=== PATIENT | female | born 1955 | race Caucasian/White ===

== ENCOUNTER 2018-09-24 06:15 | Inpatient (IN) ==
--- NOTE | 2018-09-09 12:31 | PAT Medication Instructions ---
Medication Instructions Date of Service September 09, 2018 Home Medications jcmvoxlsyb-zlvjdxnxg-qptzffklo 1 tab PO QAM atenolol 50 mg PO QAM atorvastatin 20 mg PO PM [Caltrate 600-D Plus Minerals] 1 tab PO BID levothyroxine 50 mcg PO QPM meloxicam 15 mg PO QAM metformin 1,000 mg PO BID rtvvltwvibqw-egu-bbjb-FA-vit K [Multi For Her] 1 tab-cap PO QAM omeprazole 20 mg PO Q OTHER DAY ASK your surgeon for instructions meloxicam 15 mg PO QAM DO NOT take the morning of surgery cdnxzeyern-epwkjcbla-rgaphcead 1 tab PO QAM [Caltrate 600-D Plus Minerals] 1 tab PO BID metformin 1,000 mg PO BID ljuqbqmpjnsa-gcc-lxte-FA-vit K [Multi For Her] 1 tab-cap PO QAM Take morning of surgery With a small sip of water, OTHERWISE NOTHING TO EAT OR DRINK AFTER MIDNIGHT: atenolol 50 mg PO QAM omeprazole 20 mg PO Q OTHER DAY Take evening before surgery atorvastatin 20 mg PO PM [Caltrate 600-D Plus Minerals] 1 tab PO BID levothyroxine 50 mcg PO QPM metformin 1,000 mg PO BID Other Notes If you have any questions please call us at [phone] or [phone] or [phone] or [phone]
--- NOTE | 2018-09-09 13:24 | Anesthesiology Consultation ---
Date of Service September 09, 2018 Assessment & Plan (1) Encounter for pre-operative examination: CHECK BSG AM DOS PCP Clearance 09/15 = "did review recent EKG. Did show left bundle branch block. Reviewed previous EKGs and this has been present back to EKGs we can find of 2004. No further evaluation necessary. Patient does have a history of a murmur and echocardiograms in the past were unremarkable. Chest x-ray unremarkable. Recent labs stable. Patient is medically cleared for upcoming surgery scheduled for September 24, 2017. Chart Review Chart Review: Pending: Refer to Additional Notes / Consult section and Patient seen in Pre Admission Testing Teaching & Discussion Instructed NPO after midnight before surgery, except medications with 15 cc of water. Medication instructions provided according to the PAT guidelines. History Surgery Operation Date: 09/24/18 11:40 Proposed Procedures p Right Total Knee Arthroplasty - Soren Alejo MD Height/Weight Height: 5 ft 3 in Weight: 88.2 kg Allergies Allergy/AdvReac Type Severity Reaction Status Date / Time No Known Allergies Allergy Verified 09/02/18 08:45 Medications Home Medications Medication Instructions Recorded Confirmed Last Taken oxvjrgsxsj-ricjptrvo-kwxtmbvqb 1 tab PO QAM 09/02/18 09/02/18 Unknown atenolol 50 mg PO QAM 09/02/18 09/02/18 Unknown atorvastatin 20 mg PO PM 09/02/18 09/02/18 Unknown zcg-N7-kbb87ppi32-bodg-tsu-teas-oax 1 tab PO BID 09/02/18 09/02/18 Unknown [Caltrate 600-D Plus Minerals] levothyroxine 50 mcg PO QPM 09/02/18 09/02/18 Unknown meloxicam 15 mg PO QAM 09/02/18 09/02/18 Unknown metformin 1,000 mg PO BID 09/02/18 09/02/18 Unknown prdpvjbetykc-mct-drfu-FA-vit K 1 tab-cap PO QAM 09/02/18 09/02/18 Unknown [Multi For Her] omeprazole 20 mg PO Q OTHER DAY 09/02/18 09/02/18 Unknown Past Medical History Medical History Diabetes mellitus, type 2 GERD (gastroesophageal reflux disease) Hx of aneurysm BRAIN, RUPTURED 1987 - SURGERY AT [facility]. NO DEFICITS. Hyperlipidemia Hypertension Hypothyroidism Sleep apnea CPAP Exercise / Class Metabolic Activity II 4-5 Yardwork/Stairs/Walk up hill (Denies CP or SOB with 1 FOS, does daily at home) Past Family History Family History Father Family history of diabetes mellitus Past Surgical History Surgical History History of repair of left rotator cuff Hx of brain surgery REMOVAL ANUERYSM Hx of section X2 Hx of meniscectomy of right knee Hx of tubal ligation Past Anesthesia History No Hx of Anesthesia Complications and No Family Hx of Anesthesia Complications History of PONV No Hx of PONV and No Hx of Motion Sickness Social History Smoking Status: Former smoker Do You Dip or Chew Tobacco: No Smoking End Date: 1986 Hx Alcohol Use: Yes Alcohol type: beer alcohol intake frequency: a few times a week Hx Substance Use: No Review of Systems Pt denies any recent chest pain, shortness of breath, palpitations, cough, fever or URI. Physical Exam Vital Signs BP: 138/81 P: 68bpm SPO2: 97% RA T: 97.6 F R: 16 ENMT Mouth: + dental restorations (one cap lower L bicuspid) and + small oral opening; no chipped teeth and no loose teeth Thyromental Distance: < 3.5 Finger Breadths (3) Mallampati Class: III Neck + short neck; neck extension not limited Respiratory normal respiratory effort Auscultation: lungs clear to auscultation bilaterally Cardiovascular Rate/Rhythm: regular rate and regular rhythm Heart Sounds: + murmur (I/ systolic across precordium) Vessels: no carotid bruit Extremities: no edema Testing Laboratory Results 09/09/18 13:40 09/09/18 13:40 PT 10.1 Seconds (9.0-12.0) 09/09/18 13:40 INR 1.0 (0.9-1.1) 09/09/18 13:40 APTT 27.4 Seconds (21.0-31.0) 09/09/18 13:40 Hemoglobin A1c 6.5 % (4.5-5.6) H 09/09/18 13:40 Urine Color Yellow 09/09/18 13:40 Urine Appearance Clear (Clear) 09/09/18 13:40 Urine pH 5.5 (4.5-7.5) 09/09/18 13:40 Ur Specific [place] 1.011 (1.000-1.030) 09/09/18 13:40 Urine Protein Negative (Negative) 09/09/18 13:40 Urine Glucose (UA) Negative (Negative) 09/09/18 13:40 Urine Ketones Negative (Negative) 09/09/18 13:40 Urine Nitrite Negative (Negative) 09/09/18 13:40 Ur Leukocyte Esterase Negative (Negative) 09/09/18 13:40 Blood Type O Positive 09/09/18 13:40 Antibody Screen NEGATIVE 09/09/18 13:40 Electrocardiogram Date: 09/09/18 Findings: + NSR @ (64) LBBB. Chest X-Ray Date: 09/09/18 Findings: + NAD
--- NOTE | 2018-09-09 14:13 | XRay Report ---
TWO VIEW CHEST CLINICAL HISTORY: Preoperative examination. FINDINGS: PA and lateral chest radiographs are obtained. No prior studies are available for compariso n at the time of dictation. The cardiomediastinal silhouette is unremarkable. The lungs and pleura l spaces are clear. There is no pneumothorax. The bony thorax appears intact. Postoperative change is noted in the left humeral head. IMPRESSION: No active disease in the chest. Electronically signed by: Lyndon Muahmmad M.D. 09/09/2018 2:11 PM
[2018-09-09 14:59] LABS: Basophils # (auto) 0.04 K/uL (0-0.2); Basophils % (auto) 0.4 %; Eosinophils # (auto) 0.15 K/uL (0-0.5); Eosinophils % (auto) 1.6 %; Hematocrit (blood only) 38.6 % (37-47); Hemoglobin 12.7 g/dL (12.0-16.0); Immature Granulocytes # (auto) 0.03 K/uL (0.00-0.02); Immature Granulocytes % (auto) 0.3 %; Lymphocytes # (auto) 2.04 K/uL (1.2-3.4); Lymphocytes % (auto) 22.1 %; Mean Corpuscular Hgb Conc 32.9 g/dL (32-36); Mean Corpuscular Volume 88.3 fL (80-100); Mean Platelet Volume 11.4 fL (7.4-10.4); Monocytes # (auto) 0.69 K/uL (0.11-0.59); Monocytes % (auto) 7.5 %; Neutrophils # (auto) 6.28 K/uL (1.4-6.5); Neutrophils % (auto) 68.1 %; Platelet Count 327 K/uL (130-400); RDW Standard Deviation 42.1 fL (36.4-46.3); Red Blood Count 4.37 M/uL (4.2-5.4); White Blood Count 9.23 K/uL (4.8-10.8)
[2018-09-09 15:01] LABS: Appearance Urine Clear (Clear); Bilirubin Urine Negative (Negative); Blood Urine Negative (Negative); Color Urine Yellow; Glucose Urine UA Negative (Negative); Ketones Urine Negative (Negative); Leukocyte Esterase Urine Negative (Negative); Nitrite Urine Negative (Negative); Protein Urine Negative (Negative); Specific Gravity Urine 1.011 (1.000-1.030); Urobilinogen Urine Negative (Negative); pH Urine 5.5 (4.5-7.5)
[2018-09-09 15:06] LABS: Albumin Level 4.1 gm/dl (3.4-5.0); BUN Creatinine Ratio 21.8 (10-20); Calcium 10.1 mg/dl (8.5-10.1); Creatinine Clr Calc Pharmacy 58.7 ml/min; Est GFR (African American) 65.6; Est GFR (Non-African American) 56.6; Potassium 3.8 mmol/L (3.5-5.1)
[2018-09-09 15:17] LABS: Partial Thromboplastin Time 27.4 Seconds (21.0-31.0); Prothrombin Time 10.1 Seconds (9.0-12.0)
[2018-09-10 05:42] LABS: Estimated Average Glucose 140 mg/dl; Hemoglobin A1C 6.5 % (4.5-5.6)
--- NOTE | 2018-09-23 19:24 | History and Physical Report ---
DATE OF ADMISSION: 09/24/2018 CHIEF COMPLAINT: Chronic right knee pain. HISTORY OF PRESENT ILLNESS: This is a 63-year-old female patient of Dr. Alejo'radha complaining of chronic right knee pain, longstanding, now progressively getting worse. The patient has failed conservative treatment including intra-articular injections, use of anti-inflammatories, use of a brace and home exercise program. The patient has increased pain with weightbearing activities. Her pain does interfere with her activities of daily living. The patient wished to proceed with a right total knee arthroplasty. PAST MEDICAL HISTORY: Heart murmur, hypertension, hypercholesterolemia, sleep apnea with the use of CPAP, myasthenia gravis, diabetes mellitus, hypothyroidism, acid reflux. SOCIAL HISTORY: Nonsmoker, occasional drinker. PAST SURGICAL HISTORY: Left shoulder surgery, multiple C-sections, tubal ligation and a cranial aneurysm. MEDICATIONS: 1. Amlodipine 10 mg/valsartan 320 daily. 2. Hydrochlorothiazide 25 mg daily. 3. Atenolol 50 mg daily. 4. Atorvastatin 20 mg daily. 5. Metformin 1000 mg twice daily. 6. Multivitamin daily. 7. Meloxicam 15 mg daily. 8. Caltrate 600 plus D 2 times daily. 9. Omeprazole 20 mg daily. 10. Oxycodone 5 mg as needed. ALLERGIES: No known drug allergies. FAMILY HISTORY: Noncontributory. REVIEW OF SYSTEMS: Chronic right knee pain and instability. Otherwise, denies any shortness of breath, chest pain, nausea, vomiting or any other joint complaints. PHYSICAL EXAMINATION: GENERAL: Well-developed, well-nourished 63-year-old female in no acute distress. She is alert and oriented x3 and pleasant. HEENT: Normocephalic, atraumatic. Extraocular motions are intact. Pupils are equal and reactive to light. HEART: Regular rate and rhythm, no murmurs. LUNGS: Clear. ABDOMEN: Soft, nontender, bowel sounds present. EXTREMITIES: Right knee reveals a varus deformity with medial joint line tenderness. She has a limited range of motion of 0-125. She is stable. She has a mild effusion. NEUROLOGIC: Neurovascularly, she is intact in her right lower extremity. DIAGNOSES: Right knee end-stage osteoarthritis, heart murmur, hypertension, hypercholesterolemia, sleep apnea with use of CPAP, myasthenia gravis, diabetes mellitus, hypothyroidism, acid reflux. PLAN: The patient was advised of her diagnosis. Indications, risks, benefits, postop course have all been reviewed. The patient wished to proceed with a right total knee arthroplasty. Necessary consent forms, preoperative testing and clearances will be obtained.
[~2018-09-24 06:15] MED LIST: ACETAMINOPHEN 500 MG TAB PO SCH; CEFAZOLIN 2000MG 2,000 MG/15 ML SYR IV SCH; CeleBREX 200 MG CAP PO SCH; FAMOTIDINE 20 MG TAB PO SCH; GABAPENTIN 600 MG DOSE PO SCH; LR 500ML BOLUS, THEN 15ML/HR IV SCH; METOCLOPRAMIDE HCL 10 MG TABLET PO SCH; ROPIVACAINE 0.5% HCL/PF 150 MG, BUPIVACAINE 0.5% MPF 30 ML, EPINEPHrine 30MG/30ML (OR U... INSTIL SCH
[2018-09-24] MEDS ORDERED: ROPIVACAINE 0.5% 5 MG/ML 30 ML VIAL ONE (06:43)
[2018-09-24] MEDS ORDERED: MIDAZOLAM HCL 1 MG/ML 2ML VIAL ONE (06:43)
[2018-09-24] MEDS ORDERED: BUPIVACAINE 0.5 % 5 MG/1 ML PF 10ML VIAL ONE (06:43)
[2018-09-24] MEDS ORDERED: fentaNYL citrate 100 MCG/2 ML VIAL ONE (06:44)
--- NOTE | 2018-09-24 07:21 | History & Physical Bridge Note ---
Date of Service September 24, 2018 History & Physical Bridge Note I have examined the patient, reviewed the History & Physical and in the interval since the performance of the History & Physical I have noted the following changes of clinical significance: no changes noted
[2018-09-24] MEDS ORDERED: ePHEDrine sulfate 50 MG/ML AMP IV PRN (07:51)
[2018-09-24] MEDS ORDERED: ONDANSETRON INJ 2 MG/ML 2 ML VIAL IV PRN ×2 (07:51→13:48)
[2018-09-24] MEDS ORDERED: ATROPINE SULFATE 0.1 MG/ML 10ML SYR IV PRN (07:51)
[2018-09-24] MEDS ORDERED: ONDANSETRON INJ 2 MG/ML 2 ML VIAL ONE (09:07)
[2018-09-24] MEDS ORDERED: LIDOCAINE HCL 2% 2 ML VIAL/AMP(20MG/ML) INFIL ONE (09:07)
[2018-09-24] MEDS ORDERED: PROPOFOL IV EMULSION 10 MG/ML 20 ML VIAL IV ONE (09:07)
[2018-09-24] MEDS ORDERED: ORTHO JOINT ANESTHETIC ONE (09:27)
[2018-09-24] MEDS ORDERED: BACITRACIN INJ 50,000 UNIT VIAL ONE (09:28)
[2018-09-24] MEDS ORDERED: ePHEDrine sulfate 50 MG/ML SYR ONE (10:00)
--- NOTE | 2018-09-24 11:39 | Post Operative Brief Note ---
Immediate Post Op Note v1 Date of Surgery September 24, 2018 Pre & Post Diagnosis Operation Date: 09/24/18 09:10 Pre-Op Diagnosis: Right Knee Osteoarthritis Post-Op Diagnosis: Right Knee Osteoarthritis Procedure Operation Date: 09/24/18 09:10 Actual Procedures p Right Total Knee Arthroplasty(Right) - Soren Alejo MD Surgeon Soren Alejo MD Wrecking Car Driver Vinicius BARRIENTOS Estimated Blood Loss 5 Findings Consistent with Post-Op Diagnosis Specimens Bone cuts Drains Hemovac Drain (dual trocar) Anesthesia Type MAC Spinal Regional Disposition Accompanied Patient To Recovery: No Disposition: Recovery Room Overlapping Procedure I was immediately available: during the entire case.
--- NOTE | 2018-09-24 11:44 | Operative Report ---
Post Operative Report Pre & Post Diagnosis Operation Date: 09/24/18 09:10 Pre-Op Diagnosis: Right Knee Osteoarthritis Post-Op Diagnosis: Right Knee Osteoarthritis Procedure Operation Date: 09/24/18 09:10 Actual Procedures p Right Total Knee Arthroplasty(Right) - Soren Alejo MD Surgeon Soren Alejo MD Farmworker Animal Vinicius BARRIENTOS Estimated Blood Loss 5 Findings Consistent with Post-Op Diagnosis Specimens Bone cuts Drains 2 Hemovac Anesthesia Type MAC Spinal Regional Complications none Disposition Accompanied Patient To Recovery: No Disposition: Recovery Room Indications 63-year-old female with severe bilateral knee osteoarthritis jofa-am-lwgg medial compartment bilaterally presents for staged total knee replacement. Patient has failed conservative management. Description of Procedure Patient taken to the operating room placed supine on the operating table and anesthetized under spinal MAC regional anesthesia. Exam under anesthesia demonstrated flexion contracture of 5 to 10 degrees with good flexion to 130 degrees with no instability. A pneumatic tourniquet was placed about the thigh of the right lower extremity. The right lower extremity was prepped and draped in usual fashion. Leg was elevated exsanguinated with an Esmarch bandage and the pneumatic was raised to 325 mm mercury. An anterior incision was made across the right knee. The skin was incised longitudinally subcutaneous flaps were elevated and an incision was made through the medial retinaculum extending up into the mid third of the quadriceps tendon and extended down to the medial tibial tubercle. Intra-articular findings demonstrated primarily compartment osteoarthritis with large osteophytes along the medial compartment medial femoral condyle sgez-qe-zuhq varus knee. The knee was exposed by excising the infrapatellar fat pad, excising the meniscal remnants and cruciate ligaments or remnants of the ligaments. Any inflamed synovial tissue was resected. The fat pad over the anterior femur was resected for placement of the component in that area. The lateral synovial bands were release. Appropriate releases were performed to balance ligaments. The femur was exposed. The drill hole was made into the femoral canal guide lisa was placed and the femoral cutting block was pinned in position. The distal femoral cutting block was applied and +2 additional resection performed due to flexion contracture. The distal femoral cut was made with the oscillating saw. The size 7 4-in-1 cutting block was placed. The anterior and posterior chamfer cuts were made. The knee was extended and a subperiosteal peel lateral release was performed around the patella. The patella width was measured and width was reproduced using freehand cut technique. The 29 x 8 millimeter symmetrical patella was used. 3 drill holes are made for the pegs. The tibia was exposed. A custom tibial cutting block was positioned and drill holes were made for the cutting guide. Cutting guide was placed and the proximal cut was made with the oscillating saw. All osteophytes were resected. The lamina mica spreader was used to assess ligamentous balance and the ligaments were balanced in extension and flexion. The tibia was reexposed and measured for a size D tibial component. This was externally rotated in line with the tibial tubercle and the fixation pins were drilled. The proximal tibia was fashioned with the drill and punch. The size 7 femoral trial was inserted. The trial MC inserts were used. The 12 mm insert gave balanced ligaments through full range of motion. The patella tracked with some slight liftoff so a lateral release was performed and the patella tracked centrally. the trials were removed. The orthomix anesthetic cocktail was injected per protocol. The knee was then copiously irrigated with pulsatile lavage antibiotic solution with bacitracin. The final components were cemented with Simplex cement. The final components were Billy persona size 7 narrow right femur, D tibia, 12 mm MC poly-insert, 29 x 8 mm patella symmetrical. While the cement cured with the knee in full extension the Betadine soak was used per protocol. After the cement cured, the knee joint was copiously irrigated with antibiotic solution with bacitracin. 2 drains were brought out laterally and connected to a Hemovac. The quadriceps tendon and medial retinaculum were closed with interrupted [id number]-[id number] #1 Vicryl sutures. The knee was taken through a full range of motion and repair was secure. The subcutaneous tissues were closed with 2-0 Vicryl sutures and skin was closed with fabienne. Sterile dressings were applied and the patient tolerated the procedure well. Vinicius BARRIENTOS my physician office clerk assistant, assisted in soft tissue retraction instrument management leg positioning the closure and will participate in the postoperative care of the patient. I attest to the content of the Intraoperative Record and any orders documented therein. Any exceptions are noted below.
--- NOTE | 2018-09-24 12:31 | XRay Report ---
RIGHT KNEE 2 VIEWS History: Right total knee arthroplasty. Degenerative arthritis. Postop. FINDINGS: The patient is status post a right total knee arthroplasty. The hardware is intact. No frac ture or dislocation. Skin fabienne and surgical drains are in place. IMPRESSION: Right total knee arthroplasty. No evidence for hardware complication. Electronically signed by: Willis Mcconnell M.D. 09/24/2018 12:30 PM
--- NOTE | 2018-09-24 13:07 | Anesthesiology Progress Note ---
Date of Service September 24, 2018 Anesthesia Post Procedure Vital Signs Vital Signs: Temp Pulse Pulse Resp BP Pulse Ox 09/24/18 12:40 36.6 C 61 15 124/61 99 09/24/18 12:30 36.6 C 62 19 148/76 H 98 09/24/18 12:20 63 14 130/65 99 09/24/18 12:10 62 14 146/72 H 99 09/24/18 12:00 65 14 136/74 95 09/24/18 11:50 65 16 136/66 99 09/24/18 11:46 36.4 C L 63 16 125/60 99 09/24/18 06:49 36.4 C L 64 20 158/92 H 98 Transfer of Care Handoff Completed per policy Notes Mental Status: alert / awake / arousable Patient Amnestic to Procedure: Yes Nausea / Vomiting: adequately controlled Pain: adequately controlled Airway Patency, RR, SpO2: stable & adequate BP & HR: stable & adequate Hydration State: stable & adequate Neuraxial Anesthesia: was administered and sensory block is resolving Anesthetic Complications: no major complications apparent and Pt Satisfied with anesthetic care
[2018-09-24] MEDS ORDERED: BISACODYL 10 MG SUPP PR PRN (13:48)
[2018-09-24] MEDS ORDERED: MAGNESIUM HYDROXIDE SUSP 30 ML UDC PO PRN (13:48)
[2018-09-24] MEDS ORDERED: NALOXONE HCL 0.4 MG/1 ML VIAL/CARP IV PRN (13:48)
[2018-09-24] MEDS ORDERED: PHARMACY GLYCEMIC MGMT CONSULT PRN (14:18)
[2018-09-24] MEDS ORDERED: GLUCAGON FOR INJ 1 MG VIAL IM PRN (14:30)
[2018-09-24] MEDS ORDERED: DEXTROSE 50% 50 ML SYRINGE IV PRN (14:30)
[2018-09-24] MEDS ORDERED: GLUCOSE 10 TABS/TUBE PO PRN (14:30)
[2018-09-24] MEDS ORDERED: GLUCOSE 40% GEL 15 GM TUBE PO PRN (14:30)
[2018-09-24] MEDS ORDERED: CARBOHYDRATES FOR HYPOGLYCEMIA PO PRN (14:30)
[2018-09-24] MEDS: SODIUM CHLORIDE 0.9% 1000ML 1,000 ML IV SCH (14:32)
[2018-09-24] MEDS: ACETAMINOPHEN 500 MG TAB PO SCH ×2 (14:32→21:05)
--- NOTE | 2018-09-24 14:37 | Pharmacy Report ---
Pharmacy Glycemic Short Note 2 - Date of Service September 24, 2018 - Glycemic Short BSG Results (Last 24 hours): 09/24/18 09/24/18 09/24/18 07:28 11:50 14:20 POC Glucose 126 H 119 H 116 H OUTPATIENT ANTIDIABETIC REGIMEN: * Metformin 1gm PO BID * HbA1c: 6.5% (09/09/18) ASSESSMENT: * Ms Hardy is a 63yo diabetic female POD 0 s/p R TKA with Dr Alejo today. * Patient did not receive any dexamethasone. She is ordered a diabetic diet. * Novolog added post-op while PO agents on hold. * Will consider resuming home regimen tomorrow. PLAN FOR INPATIENT GLYCEMIC CONTROL: * Hold outpatient oral diabetes medications * Likely resume tomorrow if patient is tolerating diet and renal function is appropriate. * Basal insulin * None * Bolus insulin * NovoLog per scale ACHS or Q6hrs while NPO * Goal Range: Low 110 mg/dL - High 150 mg/dL * Correction Factor: 25 mg/dL/unit * Nutritional / Prandial insulin per carb ratio of 1 unit per 9 grams CHO consumed PLAN FOR DISCHARGE: * Patient A1c (6.5%) indicates excellent glycemic control as an outpatient. * Expect that patient may resume home regimen on discharge, as long as she does not report having episodes of hypoglycemia.
[2018-09-24] MEDS: CEFAZOLIN 2000MG 2,000 MG/15 ML SYR IV SCH (18:30)
[2018-09-24] MEDS: INSULIN ASPART 100 UNITS/ML 3 ML PEN SC SCH ×2 (18:33→21:06)
[2018-09-24] MEDS ORDERED: LEVOTHYROXINE SODIUM 50 MCG TABLET PO SCH (21:00)
[2018-09-24] MEDS ORDERED: Nursing to Pharmacy Communication ONE (21:01)
[2018-09-24] MEDS: CALCIUM 600MG + VIT D 400 IU TAB PO SCH (21:03)
[2018-09-24] MEDS: DOCUSATE SODIUM 100 MG CAP PO SCH (21:04)
[2018-09-24] MEDS: CeleBREX 200 MG CAP PO SCH (21:04)
[2018-09-24] MEDS: ASPIRIN 81 MG ECTAB PO SCH (21:05)
[2018-09-24] MEDS: ATORVASTATIN 20 MG TAB PO SCH (21:05)
[2018-09-24] MEDS: SENNA 8.6 MG TAB PO SCH (21:06)
[2018-09-25] MEDS: OXYCODONE HCL IR 5 MG TAB (IMMEDIATE RELEASE) PO PRN ×5 (00:04→23:46)
[2018-09-25] MEDS: SODIUM CHLORIDE 0.9% 1000ML 1,000 ML IV SCH (00:05)
[2018-09-25] MEDS: CEFAZOLIN 2000MG 2,000 MG/15 ML SYR IV SCH (03:00)
[2018-09-25] MEDS: ACETAMINOPHEN 500 MG TAB PO SCH ×3 (05:29→21:21)
[2018-09-25] MEDS: LEVOTHYROXINE SODIUM 50 MCG TABLET PO SCH (05:29)
[2018-09-25 08:05] LABS: Hematocrit (blood only) 27.5 % (37-47); Hemoglobin 9.2 g/dL (12.0-16.0); Mean Corpuscular Hgb Conc 33.5 g/dL (32-36); Mean Corpuscular Volume 88.1 fL (80-100); Mean Platelet Volume 10.1 fL (7.4-10.4); Platelet Count 218 K/uL (130-400); RDW Coefficient of Variation 13.4 % (11.5-14.5); RDW Standard Deviation 42.9 fL (36.4-46.3); Red Blood Count 3.12 M/uL (4.2-5.4); White Blood Count 7.24 K/uL (4.8-10.8)
[2018-09-25] MEDS: HYDROmorphone INJ 0.5 MG/0.5 ML SYR IV PRN ×3 (08:06→21:13)
--- NOTE | 2018-09-25 08:10 | Orthopedic Progress Note ---
Date of Service September 25, 2018 Assessment & Plan (1) Total knee replacement status: Doing well status post right knee replacement. PT pain management outpatient physical therapy after discharge Subjective Little more pain today but doing well on present pain meds Physical Exam Physical Exam: Independent straight leg raise dressings dry and intact CSM intact Results & Data Vital Signs (Past 12 Hours) Vital Signs Temp Pulse Resp BP Pulse Ox 09/25/18 07:32 36.6 C 60 16 134/61 93 09/25/18 03:07 36.8 C 59 L 18 125/62 94 09/24/18 22:58 36.4 C L 58 L 17 123/77 94
[2018-09-25 08:44] LABS: BUN Creatinine Ratio 18.4 (10-20); Calcium 8.5 mg/dl (8.5-10.1); Creatinine Clr Calc Pharmacy 60.6 ml/min; Est GFR (African American) 68.8; Est GFR (Non-African American) 59.3; Potassium 3.9 mmol/L (3.5-5.1)
[2018-09-25] MEDS: METFORMIN HCL 500 MG TAB PO SCH ×2 (08:50→18:09)
[2018-09-25] MEDS: VALSARTAN 80 MG TAB PO SCH (08:51)
[2018-09-25] MEDS: hydroCHLOROthiazide 25 MG TAB PO SCH (08:51)
[2018-09-25] MEDS: MULTIVITAMIN TAB PO SCH (08:51)
[2018-09-25] MEDS: AMLODIPINE BESYLATE 5 MG TAB PO SCH (08:51)
[2018-09-25] MEDS: CALCIUM 600MG + VIT D 400 IU TAB PO SCH ×2 (08:51→21:18)
[2018-09-25] MEDS: ATENOLOL 50 MG TABLET PO SCH (08:51)
[2018-09-25] MEDS: DOCUSATE SODIUM 100 MG CAP PO SCH ×2 (08:51→21:19)
[2018-09-25] MEDS: ASPIRIN 81 MG ECTAB PO SCH ×2 (08:51→21:19)
[2018-09-25] MEDS: CeleBREX 200 MG CAP PO SCH ×2 (08:52→21:18)
[2018-09-25] MEDS: INSULIN ASPART 100 UNITS/ML 3 ML PEN SC SCH ×4 (08:52→21:29)
[2018-09-25] MEDS ORDERED: NON-FORMULARY MEDICATION (Multivitamin-Min-Iron-Fa-Vit K [Multi For Her] 1 TABCAP) PO SCH (09:00)
[2018-09-25] MEDS: SENNA 8.6 MG TAB PO SCH (21:20)
[2018-09-25] MEDS: ATORVASTATIN 20 MG TAB PO SCH (21:20)
--- NOTE | 2018-09-25 23:08 | Hospitalist Consultation ---
Date of Consultation September 25, 2018 Assessment & Plan (1) Total knee replacement status: No acute medical problems at this time. Continue her home medication regimen. DVT proph: as per primary team (2) Hypertension: B/P at goal. Recommend resuming all meds in AM. History of Present Illness Reason for Consultation: Medical management Requesting Physician: Riley Chow Attending Physician: Soren Alejo MD History of Present Illness 63 yo female is hospitalized for Right Total Knee Arthroplasty due to osteoarthritis. Patient reports doing well and has no new complaints at the moment. He only issue is mild pain on the operated right total knee arthroplasty. Patient denies any fever, chill,s nausea, vomiting, SOB, chest pain. Allergies Allergy/AdvReac Type Severity Reaction Status Date / Time No Known Allergies Allergy Verified 09/24/18 06:55 Home Medications Home Medications Medication Instructions Recorded Confirmed Type Caltrate 600-D Plus Minerals 1 tab PO BID 09/02/18 09/24/18 History Multi For Her 1 tab-cap PO QAM 09/02/18 09/24/18 History mhdnnytlzb-xhsftctlf-wpcktfazq 1 tab PO QAM 09/02/18 09/24/18 History atenolol 50 mg PO QAM 09/02/18 09/24/18 History atorvastatin 20 mg PO PM 09/02/18 09/24/18 History levothyroxine 50 mcg PO QPM 09/02/18 09/24/18 History metformin 1,000 mg PO BID 09/02/18 09/24/18 History omeprazole 20 mg PO Q OTHER DAY 09/02/18 09/24/18 History acetaminophen [Tylenol Extra 1,000 mg PO Q8 30 Days #180 tab 09/26/18 Rx Strength] aspirin [Ecotrin Low Strength] 81 mg PO BID 30 Days #60 tab 09/26/18 Rx celecoxib [Celebrex] 200 mg PO BID 30 Days #60 cap 09/26/18 Rx oxycodone 5 mg PO Q4H PRN #30 tab 09/26/18 Rx Patient History Medical History Diabetes mellitus, type 2 GERD (gastroesophageal reflux disease) Hx of aneurysm BRAIN, RUPTURED 1986 - SURGERY AT [facility]. NO DEFICITS. Hyperlipidemia Hypertension Hypothyroidism Sleep apnea CPAP Surgical History History of repair of left rotator cuff Hx of brain surgery REMOVAL ANUERYSM Hx of section X2 Hx of meniscectomy of right knee Hx of tubal ligation Family History Father Family history of diabetes mellitus Social History Preferred Language: [place]ar[place] Communication Ability: Effective Beliefs That Will Affect Care: None marital status: Current Living Situation: Spouse Feels Safe at Home: Yes Safety Concerns: Feels Safe At This Time Smoking Status: Former smoker Do You Dip or Chew Tobacco: No ; Smoking End Date: 1986 ; Second Hand Exposure: Yes (SOCIALLY) ; Hx Alcohol Use: Yes Alcohol type: beer Hx Substance Use: No Review of Systems Review of Systems: All systems reviewed & are unremarkable except as noted in HPI & below Constitutional: no sweats and no malaise Eyes: no diplopia Respiratory: no change in sputum and no hemoptysis Cardiovascular: no chest pain with activity Genitourinary: no urinary frequency Integumentary: no non-healing lesions Neurologic: no falls Psychiatric: no hopelessness Physical Exam Constitutional: well developed and well nourished Eyes: PERRL, conjunctivae normal, anicteric sclerae ENMT: external ear and nose normal, oropharynx normal Neck: trachea midline, no thyromegaly Respiratory: normal respiratory effort, lungs clear to auscultation Cardiovascular: RRR, no murmur, no edema Gastrointestinal (Abdomen): normal bowel sounds, soft, nontender, no hepatosplenomegaly Musculoskeletal: no cyanosis or clubbing, extremities motor strength 5/5 Neurologic: PERRL, EOMI, accommodation nl, no face palsy, no dysarthria Psychiatric: A+Ox3, euthymic affect Results & Data Vital Signs (Past 12 Hours) Vital Signs Temp Pulse Resp BP Pulse Ox Pulse Ox 09/25/18 22:38 36.6 C 64 16 101/62 93 09/25/18 15:52 37.0 C 65 18 158/77 H 97 09/25/18 13:20 97 09/25/18 12:29 36.5 C 58 L 16 118/78 95 PG Care Time/CCT Total # of Minutes Spent Total Time Spent with Patient: Total time spent is greater than 50% in coordination of care (as documented) at patient's floor/unit and/or counseling patient:
[2018-09-26] MEDS: ACETAMINOPHEN 500 MG TAB PO SCH (05:21)
[2018-09-26] MEDS: LEVOTHYROXINE SODIUM 50 MCG TABLET PO SCH (05:21)
--- NOTE | 2018-09-26 06:59 | Orthopedic Progress Note ---
Date of Service September 26, 2018 Assessment & Plan (1) Total knee replacement status: POD #2 Right TKA PT/ OT DVT proph- ASA D/C planning Home w OPPT today As per medicine Subjective POD #2 Doing well, Denies SOB, CP, N/V. Pain controlled well. Physical Exam Physical Exam: Right knee silverlon dressing in tact, no drainage, toes/ ankle mobile, A&Ox3. Results & Data Vital Signs (Past 12 Hours) Vital Signs Temp Pulse Resp BP Pulse Ox 09/25/18 22:38 36.6 C 64 16 101/62 93
[2018-09-26 07:26] LABS: Hemoglobin 9.1 g/dL (12.0-16.0); Mean Corpuscular Hgb Conc 32.5 g/dL (32-36); Mean Corpuscular Volume 89.2 fL (80-100); Mean Platelet Volume 10.3 fL (7.4-10.4); Platelet Count 254 K/uL (130-400); RDW Coefficient of Variation 13.7 % (11.5-14.5); RDW Standard Deviation 44.3 fL (36.4-46.3); Red Blood Count 3.14 M/uL (4.2-5.4); White Blood Count 9.16 K/uL (4.8-10.8)
[2018-09-26 07:55] LABS: BUN Creatinine Ratio 19.3 (10-20); Calcium 8.4 mg/dl (8.5-10.1); Creatinine Clr Calc Pharmacy 52.4 ml/min; Est GFR (African American) 57.6; Est GFR (Non-African American) 49.7; Potassium 3.9 mmol/L (3.5-5.1)
[2018-09-26] MEDS: METFORMIN HCL 500 MG TAB PO SCH (08:33)
[2018-09-26] MEDS: CALCIUM 600MG + VIT D 400 IU TAB PO SCH (08:33)
[2018-09-26] MEDS: CeleBREX 200 MG CAP PO SCH (08:34)
[2018-09-26] MEDS: DOCUSATE SODIUM 100 MG CAP PO SCH (08:34)
[2018-09-26] MEDS: VALSARTAN 80 MG TAB PO SCH (08:35)
[2018-09-26] MEDS: hydroCHLOROthiazide 25 MG TAB PO SCH (08:35)
[2018-09-26] MEDS: ASPIRIN 81 MG ECTAB PO SCH (08:35)
[2018-09-26] MEDS: AMLODIPINE BESYLATE 5 MG TAB PO SCH (08:36)
[2018-09-26] MEDS: ATENOLOL 50 MG TABLET PO SCH (08:36)
[2018-09-26] MEDS: MULTIVITAMIN TAB PO SCH (08:36)
[2018-09-26] MEDS: INSULIN ASPART 100 UNITS/ML 3 ML PEN SC SCH ×2 (08:40→12:41)
[2018-09-26] MEDS ORDERED: PANTOprazole 40 MG TAB PO SCH (09:00)
--- NOTE | 2018-09-26 11:16 | Pharmacy Report ---
Glycemic Control Progress Note - Date of Service September 26, 2018 - Scope Glycemic Pharmacist consulted for glycemic control to write orders per [facility] inpatient glycemic control protocol. - Objective Accuchecks BSG(last 24 hours):: 09/25/18 09/25/18 09/25/18 12:06 17:18 20:41 Glucose POC Glucose 166 H 103 H 136 H 09/26/18 09/26/18 07:06 08:29 Glucose 143 H POC Glucose 136 H HbA1c:: Hemoglobin A1c 6.5 % (4.5-5.6) H 09/09/18 13:40 - Recent Pertinent Medications The patient is currently receiving: * Basal insulin: NONE * Correctional Insulin: Novolog Correction per scale ACHS Goal Range: Low 110 mg/dL - High 150 mg/dL Correction Factor: 25 mg/dL/unit * Prandial insulin: Per carb ratio of 1 unit per 9 grams CHO consumed * Oral Agents: metformin 1 gm po BID - Outpatient Anti-Diabetic Meds metformin 1 gm PO BID - Assessment & Plan ASSESSMENT: * See progress note from 09/24/18 for more background info, in short: * Pt receiving SQ basal bolus insulin regimen for hyperglycemia secondary to baseline DM (outpatient regimen on hold) and POD 2. * Patient is currently receiving an average of 15 units of insulin per day * 0 units of basal insulin * 15 units of prandial/correctional insulin * BSGs ranging 103 - 166 mg/dl over the past 24hrs * Changes needed to insulin regimen: * AM Fasting BSG = 136 mg/dl. This is in goal range for patient based on inpatient targets and co-morbidities. Continue to hold basal insulin. * Post-prandial BSGs are in range therefore no changes needed to CF/CR. * Total daily dose = <20 units. * Additional notes / comments: continue home medication of metformin 1 gm PO BID PLAN FOR INPATIENT GLYCEMIC CONTROL: * Continuing correction factor of 25 mg/dl/unit * Continuing carb ratio of 1 unit per 9 grams CHO consumed * Continuing goal range of Low 110 mg/dL - High 140 mg/dL RECOMMENDATIONS FOR DISCHARGE: * Patient's HbA1C well controlled. Continue currently regimen. * Please note that the plan above was derived based on current level of insulin resistance and hospital stress. These recommendations are appropriate for inpatient admission only. Plan of care upon discharge will need to be reassessed to avoid potential outpatient hypo/hyperglycemia. Thank you.
[2018-09-26] MEDS: OXYCODONE HCL IR 5 MG TAB (IMMEDIATE RELEASE) PO PRN (11:29)
--- NOTE | 2018-10-08 04:06 | Discharge Summary ---
HISTORY OF PRESENT ILLNESS: This is a 63-year-old female patient of Dr. Alejo's, complaining of chronic right knee pain, longstanding, now progressively getting worse. The patient failed conservative treatment and elected to proceed with a right total knee arthroplasty. PAST MEDICAL HISTORY: Heart murmur, hypertension, hypercholesterolemia, sleep apnea with the use of CPAP, myasthenia gravis, diabetes mellitus, hypothyroidism and acid reflux. POSTOPERATIVE COURSE: The patient underwent a right total knee arthroplasty on 09/24/2018. She was followed closely with medical consultation, DVT prophylaxis in the form of aspirin, physical therapy and pain control. The patient did well postoperatively and was discharged home on postoperative day #2. PHYSICAL EXAMINATION: On discharge, right knee Silverlon dressing was clean, dry and intact. There was no redness or drainage. She had no calf tenderness. Negative Homans sign. Ankle and toes were mobile. Neurologically and neurovascularly, she is intact in her right lower extremity. DIAGNOSES: Status post right total knee arthroplasty, history of a heart murmur, hypertension, hypercholesterolemia, sleep apnea with use of CPAP, myasthenia gravis, diabetes mellitus, hypothyroidism and acid reflux. PLAN: The patient was discharged home on postoperative day #2 with outpatient physical therapy. She will continue her preadmission medications with the addition of aspirin twice daily for DVT prophylaxis and the addition of pain medications. The patient will follow up with Dr. Alejo as scheduled as an outpatient.
== END 2018-09-26 12:47 | disposition home or self-care (01) | DRG 470 ==
LOC: ASU 06:15 → 3W 11:45
DX: E78.00 Pure hypercholesterolemia, unspecified; I10 Essential (primary) hypertension; M17.11 Unilateral primary osteoarthritis, right knee; Z79.899 Other long term (current) drug therapy; E11.9 Type 2 diabetes mellitus without complications; Z79.84 Long term (current) use of oral hypoglycemic drugs; G47.30 Sleep apnea, unspecified; E03.9 Hypothyroidism, unspecified; K21.9 Gastro-esophageal reflux disease without esophagitis

== ENCOUNTER 2019-08-19 08:49 | Inpatient (IN) ==
[2019-08-13 12:44] LABS: Basophils # (auto) 0.03 K/uL (0-0.2); Basophils % (auto) 0.3 %; Eosinophils # (auto) 0.15 K/uL (0-0.5); Eosinophils % (auto) 1.7 %; Hematocrit (blood only) 38.3 % (37-47); Hemoglobin 12.5 g/dL (12.0-16.0); Immature Granulocytes # (auto) 0.04 K/uL (0.00-0.02); Immature Granulocytes % (auto) 0.4 %; Lymphocytes # (auto) 2.19 K/uL (1.2-3.4); Lymphocytes % (auto) 24.3 %; Mean Corpuscular Hemoglobin 28.4 pg (25-34); Mean Corpuscular Hgb Conc 32.6 g/dL (32-36); Mean Platelet Volume 10.8 fL (7.4-10.4); Monocytes # (auto) 0.86 K/uL (0.11-0.59); Monocytes % (auto) 9.6 %; Neutrophils # (auto) 5.73 K/uL (1.4-6.5); Neutrophils % (auto) 63.7 %; Platelet Count 330 K/uL (130-400); RDW Coefficient of Variation 14.1 % (11.5-14.5); RDW Standard Deviation 44.2 fL (36.4-46.3)
[2019-08-13 12:55] LABS: Prothrombin Time 10.2 Seconds (9.0-12.0)
[2019-08-13 13:07] LABS: Estimated Average Glucose 151 mg/dl; Hemoglobin A1C 6.9 % (4.5-5.6)
[2019-08-13 13:16] LABS: Albumin Level 4.4 gm/dl (3.4-5.0); BUN Creatinine Ratio 15.6 (10-20); Blood Urea Nitrogen 17 mg/dl (7-18); Calcium 9.9 mg/dl (8.5-10.1); Carbon Dioxide 26 mmol/L (21-32); Chloride 102 mmol/L (98-107); Est GFR (African American) 63.7; Glucose 91 mg/dl (70-99); Potassium 3.6 mmol/L (3.5-5.1); Sodium 137 mmol/L (136-145)
[2019-08-13 13:45] LABS: Appearance Urine Clear (Clear); Bilirubin Urine Negative (Negative); Blood Urine Negative (Negative); Color Urine Yellow; Glucose Urine UA Negative (Negative); Ketones Urine Negative (Negative); Leukocyte Esterase Urine Negative (Negative); Nitrite Urine Negative (Negative); Protein Urine Negative (Negative); Specific Gravity Urine 1.013 (1.000-1.030); Urobilinogen Urine Negative (Negative); pH Urine 5.5 (4.5-7.5)
--- NOTE | 2019-08-17 09:16 | Anesthesiology Consultation ---
Date of Service August 17, 2019 Assessment & Plan (1) Encounter for pre-operative examination: Chart Review Chart Review: Acceptable Risk for Surgery (pending evaluation by anesthesia) and Patient NOT seen in Pre Admission Testing - Check BSG AM DOS -Did discuss [address] Carden[address]. Pt follows routinely with PCP. Will need evaluation AM of surgery to ensure no functional limitations. Will leave to anesthesia discretion on type of anesthesia needed and final decision to proceed with surgery. Bolus not ordered until evaluated by anesthesia- patient will need bolus if SAB done. Per nursing assessment 08/14/19, pt resides in [facility]. Has traveled to [facility] and [facility]. Goes only to grocery store-wears mask and social distances. Had Covid testing 08/12 at surgeon's office. Covid test 08/13/19= negative Per anesthesia evaluation prior to right TKA on August= PCP stated in 09/15/18 note "did review recent EKG. Did show left bundle branch block. Reviewed previous EKGs and this has been present back to EKGs we can find of 2004. No further evaluation necessary. Patient does have a history of a murmur and echocardiograms in the past were unremarkable." Pt was cleared from PCP standpoint for August surgery. Right TKA 09/24/18= Done under SAB- no issues noted per anesthesia record. History Surgery Operation Date: 08/19/19 11:20 Proposed Procedures p Left Total Knee Arthroplasty - Soren Alejo MD Height/Weight Height: 5 ft 3 in Weight: 90.718 kg Allergies Allergy/AdvReac Type Severity Reaction Status Date / Time No Known Allergies Allergy Verified 08/14/19 15:23 Medications Home Medications Medication Instructions Recorded Confirmed Last Taken Caltrate 600-D Plus Minerals 1 tab PO BID 09/02/18 08/14/19 09/22/18 07:00 Multi For Her 1 tab-cap PO QAM 09/02/18 08/14/19 09/22/18 07:00 lyrpqrmjzs-rwqfseflk-pzdduqjgc 1 tab PO QAM 09/02/18 08/14/19 09/23/18 07:00 atenolol 50 mg PO PM 09/02/18 08/14/19 09/24/18 04:00 atorvastatin 20 mg PO PM 09/02/18 08/14/19 09/23/18 18:00 levothyroxine 50 mcg PO QAM 09/02/18 08/14/19 09/23/18 07:00 metformin 1,000 mg PO BID 09/02/18 08/14/19 09/23/18 18:00 omeprazole 20 mg PO QAM 09/02/18 08/14/19 09/24/18 04:00 acetaminophen [Tylenol 8 Hour] 650 mg PO Q8H PRN 08/14/19 08/14/19 Unknown Past Medical History Medical History Diabetes mellitus, type 2 GERD (gastroesophageal reflux disease) Hx of aneurysm BRAIN, RUPTURED 1986 - SURGERY AT [facility]. NO DEFICITS. Hyperlipidemia Hypertension Hypothyroidism Osteoarthritis Sleep apnea CPAP Past Family History Family History Father Family history of diabetes mellitus Brother Colon cancer Brother Stroke Past Surgical History Surgical History History of breast biopsy RIGHT History of colonoscopy History of repair of left rotator cuff History of tooth extraction History of total knee replacement RIGHT Hx of brain surgery REMOVAL ANUERYSM> 1986 Hx of section X2 Hx of meniscectomy of right knee Hx of tubal ligation Social History Smoking Status: Former smoker Do You Dip or Chew Tobacco: No Smoking End Date: 1986 Hx Alcohol Use: Yes Alcohol type: beer alcohol intake frequency: a few times a week Hx Substance Use: No substance use type: does not use Testing Laboratory Results 08/13/19 11:59 08/13/19 11:59 PT 10.2 Seconds (9.0-12.0) 08/13/19 11:59 INR 1.0 (0.9-1.1) 08/13/19 11:59 APTT 28.0 Seconds (21.0-31.0) 08/13/19 11:59 Hemoglobin A1c 6.9 % (4.5-5.6) H 08/13/19 11:59 Urine Color Yellow 08/13/19 11:59 Urine Appearance Clear (Clear) 08/13/19 11:59 Urine pH 5.5 (4.5-7.5) 08/13/19 11:59 Ur Specific [place] 1.013 (1.000-1.030) 08/13/19 11:59 Urine Protein Negative (Negative) 08/13/19 11:59 Urine Glucose (UA) Negative (Negative) 08/13/19 11:59 Urine Ketones Negative (Negative) 08/13/19 11:59 Urine Nitrite Negative (Negative) 08/13/19 11:59 Ur Leukocyte Esterase Negative (Negative) 08/13/19 11:59 Blood Type O Positive 08/13/19 11:59 Antibody Screen NEGATIVE 08/13/19 11:59 Electrocardiogram Date: 09/09/18 Findings: + NSR @ (64) LBBB Chest X-Ray Date: 09/09/18 Findings: + NAD Echocardiogram Date: 08/19/07 EF: 61% RWMA: + none Mild AV sclerosis adequate leaflet mobility, and normal mitral and tricuspid v alve. Minimal without significant AI. JACQUELINE 1.2cm2; mean PG 4mmHg; AV velocity 1.6m/s Mild MR. Mild TR
--- NOTE | 2019-08-18 16:09 | History and Physical Report ---
DATE OF ADMISSION: 08/19/2019 CHIEF COMPLAINT: Chronic left knee pain and instability. HISTORY OF PRESENT ILLNESS: A 64-year-old female patient of Dr. Johnson complaining of chronic left knee pain and instability, longstanding, now progressively getting worse. The patient has failed conservative treatment including intraarticular injections, anti-inflammatories and the use of a brace. The patient has increased pain with weightbearing activities and her pain does interfere with her activities of daily living. She has been diagnosed with end-stage osteoarthritis per clinical and radiographic exams and has elected to proceed with a left total knee arthroplasty. PAST MEDICAL HISTORY: Heart murmur, hypertension, hypercholesterolemia, diabetes mellitus, hypothyroidism, acid reflux. SOCIAL HISTORY: Nonsmoker, occasional drinker. PAST SURGICAL HISTORY: x2, tubal ligation, left shoulder surgery on the rotator cuff, right total knee arthroplasty and left foot surgery removal of cyst. FAMILY HISTORY: Noncontributory. REVIEW OF SYSTEMS: Chronic left knee pain and instability. Otherwise, denies any shortness of breath, chest pain, nausea, vomiting or any other joint complaints. MEDICATIONS: 1. Atenolol 50 mg daily. 2. Atorvastatin 20 mg daily. 3. Metformin 1000 mg twice daily with meals. 4. Multivitamin daily. 5. Caltrate 600 plus D daily. 6. Omeprazole 20 mg daily. 7. Levothyroxine 50 mcg daily. 8. Valsartan 320/hydrochlorothiazide 25 daily. 9. Amlodipine 10 mg daily. 10. Celebrex 200 mg daily. ALLERGIES: No known drug allergies. PHYSICAL EXAMINATION: GENERAL: Well-developed, well-nourished 64-year-old female in no acute distress. She is alert and oriented x3 and pleasant. HEENT: Normocephalic, atraumatic. Extraocular motions are intact. Pupils are equal and reactive to light. HEART: Regular rate and rhythm, no murmurs. LUNGS: Clear. ABDOMEN: Soft, nontender, bowel sounds present. EXTREMITIES: Left knee has a varus deformity with medial joint line tenderness. She has a mild effusion, positive Adam's. Limited range of motion of 0 to 120 with 5/5 strength. Neurologically and neurovascularly intact in her left lower extremity. DIAGNOSES: Left knee end-stage osteoarthritis, heart murmur, hypertension, hypercholesterolemia, diabetes mellitus, hypothyroidism, acid reflux. PLAN: The patient was advised of her diagnosis. Indications, risks, benefits, postop course have all been reviewed. The patient agrees to proceed with a left total knee arthroplasty. Necessary consent forms, preoperative testing and clearances will be obtained. LEANDER
[~2019-08-19 08:49] MED LIST changes: +BUPIVACAINE 0.5 % 5 MG/1 ML MPF 30ML VIAL ONE; +BUPIVACAINE/EPINEPHRINE 0.25% 1:200,000 30 ML VIAL ONE; +LR 15ML/HR IV SCH; -LR 500ML BOLUS, THEN 15ML/HR IV SCH; +ROPIVACAINE 0.5% HCL/PF 150 MG, BUPIVACAINE 0.5% MPF 30 ML, EPINEPHrine 30MG/30ML (OR U... INFIL SCH; -ROPIVACAINE 0.5% HCL/PF 150 MG, BUPIVACAINE 0.5% MPF 30 ML, EPINEPHrine 30MG/30ML (OR U... INSTIL SCH; +TRANEXAMIC ACID 1,000 MG **IV Intra-op IV SCH; +TRANEXAMIC ACID 1,000 MG **IV Pre-op IV SCH
[2019-08-19] MEDS ORDERED: MIDAZOLAM HCL 1 MG/ML 2ML VIAL ONE ×2 (09:08)
[2019-08-19] MEDS ORDERED: fentaNYL citrate 100 MCG/2 ML VIAL ONE (09:08)
--- NOTE | 2019-08-19 10:23 | History & Physical Bridge Note ---
Date of Service August 19, 2019 History & Physical Bridge Note I have examined the patient, reviewed the History & Physical and in the interval since the performance of the History & Physical I have noted the following changes of clinical significance: no changes noted
[2019-08-19] MEDS ORDERED: ATROPINE SULFATE 0.1 MG/ML 10ML SYR IV PRN (10:29)
[2019-08-19] MEDS ORDERED: ONDANSETRON INJ 2 MG/ML 2 ML VIAL IV PRN ×2 (10:29→15:32)
[2019-08-19] MEDS ORDERED: ePHEDrine sulfate 50 MG/ML AMP IV PRN (10:29)
[2019-08-19] MEDS ORDERED: fentaNYL citrate 100 MCG/2 ML VIAL IV PRN (10:29)
[2019-08-19] MEDS ORDERED: HYDROmorphone INJ 2 MG/ML SYR/VIAL IV PRN (10:29)
[2019-08-19] MEDS ORDERED: BACITRACIN INJ 50,000 UNIT VIAL ONE (10:53)
[2019-08-19] MEDS ORDERED: ORTHO JOINT ANESTHETIC ONE (10:53)
[2019-08-19] MEDS ORDERED: PROPOFOL IV EMULSION 10 MG/ML 20 ML VIAL IV ONE (12:28)
[2019-08-19] MEDS ORDERED: LIDOCAINE HCL 2% 2 ML VIAL/AMP(20MG/ML) INFIL ONE (12:28)
[2019-08-19] MEDS ORDERED: ePHEDrine sulfate 50 MG/ML SYR ONE (12:28)
[2019-08-19] MEDS ORDERED: ONDANSETRON INJ 2 MG/ML 2 ML VIAL ONE (13:11)
--- NOTE | 2019-08-19 13:23 | Post Operative Brief Note ---
Immediate Post Op Note v1 Date of Surgery August 19, 2019 Pre & Post Diagnosis Operation Date: 08/19/19 11:20 Pre-Op Diagnosis: LEFT KNEE OSTEOARTHRITIS Post-Op Diagnosis: LEFT KNEE OSTEOARTHRITIS I identified the patient and participated in the time-out.: Yes Procedure Operation Date: 08/19/19 11:20 Actual Procedures p Left Total Knee Arthroplasty(Left), lateral release- Soren Alejo MD Surgeon Soren Alejo MD Cellar Worker FLOYD Gonzalez Estimated Blood Loss 10 Findings Consistent with Post-Op Diagnosis Specimens Bone cuts Drains Hemovac Drain Anesthesia Type MAC Spinal Regional Complications none Disposition Accompanied Patient To Recovery: No Disposition: Recovery Room Overlapping Procedure I was present for: the critical portions of procedure. Back up surgeon: was not required during procedure.
--- NOTE | 2019-08-19 14:16 | XRay Report ---
TWO VIEWS LEFT KNEE CLINICAL HISTORY: Postoperative examination. FINDINGS: AP and crosstable lateral portable views of the left knee are obtained. A left knee arthrop lasty is in near anatomic alignment. There has been undersurface remodeling of the patella. No acute fracture is seen. There are expected postoperative changes around the knee including skin clips, a anderson rgical drain, soft tissue edema, and subcutaneous gas. IMPRESSION: Expected postoperative changes status post left knee arthroplasty. No acute fracture is s een. ACT 112: Negative or not required by law. Electronically signed by: Lyndon Muhammad M.D. 08/19/2019 2:14 PM
--- NOTE | 2019-08-19 14:44 | Anesthesiology Progress Note ---
Date of Service August 19, 2019 Anesthesia Post Procedure Vital Signs Vital Signs: Temp Pulse Pulse Resp BP BP Pulse Ox 08/19/19 14:35 63 20 135/62 95 08/19/19 14:25 66 18 133/63 96 08/19/19 14:15 36.6 C 73 16 136/75 96 08/19/19 14:05 74 28 H 127/64 94 08/19/19 13:55 69 21 132/62 95 08/19/19 13:48 36.4 C L 78 23 142/61 H 95 08/19/19 09:50 61 20 164/64 H 99 08/19/19 09:31 36.8 C 68 20 116/74 98 Pain Intensity Left Knee: Pain Intensity: 8 Transfer of Care Handoff Completed per policy Notes Mental Status: alert / awake / arousable and participated in evaluation Patient Amnestic to Procedure: Yes Nausea / Vomiting: adequately controlled Pain: adequately controlled Airway Patency, RR, SpO2: stable & adequate BP & HR: stable & adequate Hydration State: stable & adequate Anesthetic Complications: no major complications apparent and Pt Satisfied with anesthetic care
[2019-08-19] MEDS ORDERED: bisacodyL 10 MG SUPP PR PRN (15:32)
[2019-08-19] MEDS ORDERED: MAGNESIUM HYDROXIDE SUSP 30 ML UDC PO PRN (15:32)
[2019-08-19] MEDS ORDERED: HYDROmorphone INJ 0.5 MG/0.5 ML SYR IV PRN (15:32)
[2019-08-19] MEDS ORDERED: NALOXONE HCL 0.4 MG/1 ML VIAL/CARP IV PRN (15:32)
--- NOTE | 2019-08-19 15:45 | Operative Report ---
Post Operative Report Pre & Post Diagnosis Operation Date: 08/19/19 11:20 Pre-Op Diagnosis: LEFT KNEE OSTEOARTHRITIS Post-Op Diagnosis: LEFT KNEE OSTEOARTHRITIS I identified the patient and participated in the time-out.: Yes Procedure Operation Date: 08/19/19 11:20 Actual Procedures p Left Total Knee Arthroplasty(Left), lateral release- Soren Alejo MD Surgeon Soren Alejo MD Nuclear Waste Process Operator FLOYD Gonzalez Estimated Blood Loss 10 Findings Consistent with Post-Op Diagnosis Specimens Bone cuts Drains 2 Hemovac Anesthesia Type MAC Spinal Regional Complications none Disposition Accompanied Patient To Recovery: No Disposition: Recovery Room Indications 64-year-old female with chronic progressive osteoarthritis her left knee. Her left knee is a varus knees [id number] in the medial compartment with mild bone loss. Patient has a persona total knee replacement her opposite knee and doing well with her knee replacement on the opposite side. Description of Procedure Patient taken to the operating room placed supine on the operating table and anesthetized under spinal MAC regional anesthesia. Exam under anesthesia demonstrated tight varus knee with good range of motion and no pseudolaxity or instability. A pneumatic tourniquet was placed about the thigh of the left lower extremity. The left lower extremity was prepped and draped in usual fashion. Leg was elevated exsanguinated with an Esmarch bandage and the pneumatic was raised to 300 mm mercury. An anterior incision was made across the left knee. The skin was incised longitudinally subcutaneous flaps were elevated and an incision was made through the medial retinaculum extending up into the mid third of the quadriceps tendon and extended down to the medial tibial tubercle. Intra-articular findings demonstrated primarily medial compartment OA with [id number] medial compartment mild bone loss. She did have some inflammatory synovitis noted in the suprapatellar pouch area. The knee was exposed by excising the infrapatellar fat pad, excising the meniscal remnants and anterior cruciate ligament. The inflamed suprapatellar pouch synovial tissue was resected. The fat pad over the anterior femur was resected for placement of the component in that area. The lateral synovial bands were release. Appropriate releases were performed to balance ligaments. The femur was exposed. The custom femoral cutting block was pinned in position. The distal femoral cutting block was applied. The distal femoral cut was made with the oscillating saw. The size 6, 4-in-1 cutting block was placed. The anterior and posterior chamfer cuts were made. The knee was extended and a subperiosteal peel lateral release was performed around the patella. The patella width was measured and width was reproduced using freehand cut technique. The 29 x 8 millimeter symmetrical patella was used. 3 drill holes are made for the pegs. The tibia was exposed. A custom tibial cutting block was positioned and drill holes were made for the cutting guide. Cutting guide was placed and the proximal cut was made with the oscillating saw. All osteophytes were resected. The lamina supervisor finishing department was used to assess ligamentous balance and the ligaments were balanced in extension and flexion. The tibia was reexposed and measured for a size D tibial component. This was externally rotated in line with the tibial tubercle and the fixation pins were drilled. The proximal tibia was fashioned with the drill and punch. The size 6 CR femora l trial was inserted. The trial MC inserts were used. The 13 mm insert gave balanced ligaments through full range of motion. The patella tracked with some minor liftoff so I did a lateral release leaving the synovium intact and the patella tracked centrally. the trials were removed. The orthomix anesthetic cocktail was injected per protocol. The knee was then copiously irrigated with pulsatile lavage antibiotic solution with bacitracin. The final components were cemented with Simplex cement. The final components were persona Billy [employer] size 6 standard CR left femoral component, D tibial component, 13 MC tibial polyethylene insert, 29x 8 mm symmetrical patella. While the cement cured with the knee in full extension the Betadine soak was used per protocol. After the cement cured, the knee joint was copiously irrigated with antibiotic solution with bacitracin. 2 drains were brought out laterally and connected to a Hemovac. The quadriceps tendon and medial retinaculum were closed with interrupted [id number] #1 Vicryl sutures. The knee was taken through a full range of motion and repair was secure. The subcutaneous tissues were closed with 2-0 Vicryl sutures and skin was closed with fabienne. Sterile dressings were applied and the patient tolerated the procedure well. Vinicius BARRIENTOS my physician speech language assistant, assisted in soft tissue retraction instrument management leg positioning the closure and will participate in the postoperative care of the patient. I attest to the content of the Intraoperative Record and any orders documented therein. Any exceptions are noted below.
[2019-08-19] MEDS ORDERED: PHARMACY GLYCEMIC MGMT CONSULT PRN (15:54)
[2019-08-19] MEDS ORDERED: CARBOHYDRATES FOR HYPOGLYCEMIA PO PRN (16:00)
[2019-08-19] MEDS ORDERED: GLUCOSE 10 TABS/TUBE PO PRN (16:00)
[2019-08-19] MEDS ORDERED: GLUCOSE 40% GEL 15 GM TUBE PO PRN (16:00)
[2019-08-19] MEDS ORDERED: DEXTROSE 50% 50 ML SYRINGE IV PRN (16:00)
[2019-08-19] MEDS ORDERED: GLUCAGON FOR INJ 1 MG VIAL IM PRN (16:00)
[2019-08-19] MEDS: SODIUM CHLORIDE 0.9% 1000ML 1,000 ML IV SCH (17:10)
[2019-08-19] MEDS: ACETAMINOPHEN 500 MG TAB PO SCH (17:11)
--- NOTE | 2019-08-19 17:19 | Hospitalist Consultation ---
Date of Consultation August 19, 2019 Assessment & Plan (1) Total knee replacement status: s/p TKA 08/18 Pain control, dvt proph per primary Monitor for acute blood loss (2) Hypertension: Continue home amlodipine, and atenolol - will hold losartan and hctz until kidney function labs are back am (3) Diabetes mellitus, type 2: pharmacy glycemic consult (4) GERD (gastroesophageal reflux disease): Continue ppi History of Present Illness Attending Physician: Soren Alejo MD History of Present Illness Ms. Hardy is status post knee replacement today. She is feeling well, pain is controlled. Pmhx: brain aneurysm rupture at age 31, htn, DMII, GERD Family: brothers with colon cancer, prostate cancer, stroke and heart disease Social: , retired, quit smoking after her aneurysm after 4 pyh, rare alcohol Allergies Allergy/AdvReac Type Severity Reaction Status Date / Time No Known Allergies Allergy Verified 08/19/19 09:25 Home Medications Home Medications Medication Instructions Recorded Confirmed Type Caltrate 600-D Plus Minerals 1 tab PO BID 09/02/18 08/19/19 History Multi For Her 1 tab-cap PO QAM 09/02/18 08/19/19 History uepowlymso-bhtyvwlud-prvwmfilk 1 tab PO QAM 09/02/18 08/19/19 History atenolol 50 mg PO PM 09/02/18 08/19/19 History atorvastatin 20 mg PO PM 09/02/18 08/19/19 History levothyroxine 50 mcg PO QAM 09/02/18 08/19/19 History metformin 1,000 mg PO BID 09/02/18 08/19/19 History omeprazole 20 mg PO QAM 09/02/18 08/19/19 History acetaminophen [Tylenol 8 Hour] 650 mg PO Q8H PRN 08/14/19 08/19/19 History Patient History Medical History Diabetes mellitus, type 2 GERD (gastroesophageal reflux disease) Hx of aneurysm BRAIN, RUPTURED 1986 - SURGERY AT [facility]. NO DEFICITS. Hyperlipidemia Hypertension Hypothyroidism Osteoarthritis Sleep apnea CPAP Surgical History History of breast biopsy RIGHT History of colonoscopy History of repair of left rotator cuff History of tooth extraction History of total knee replacement RIGHT Hx of brain surgery REMOVAL ANUERYSM> 1986 Hx of section X2 Hx of meniscectomy of right knee Hx of tubal ligation Family History Father Family history of diabetes mellitus Brother Colon cancer Brother Stroke Social History Preferred Language: Wolof Communication Ability: Effective Jet Dyeing Machine Operator Required: No Beliefs That Will Affect Care: None marital status: Current Living Situation: Spouse Other Information That Helps Us Care for You: No Feels Safe at Home: Yes Safety Concerns: Feels Safe At This Time Smoking Status: Former smoker Do You Dip or Chew Tobacco: No ; Smoking End Date: 1986 ; Second Hand Exposure: Yes (AT BAR) ; Tobacco Cessation Education Requested by Patient: No Hx Alcohol Use: Yes Alcohol type: beer Hx Substance Use: No Review of Systems Review of Systems: All systems reviewed & are unremarkable except as noted in HPI & below Constitutional: no fever, no chills and no body aches Respiratory: no cough and no dyspnea Cardiovascular: no chest pain, no dyspnea and no lightheadedness Gastrointestinal: no abdominal pain, no nausea and no vomiting Genitourinary: no dysuria and no urinary hesitancy Musculoskeletal: no joint pain Integumentary: no rash Results & Data Results & Data ([facility]) Vital Signs (Past 12 Hours) Vital Signs Temp Pulse Pulse Resp BP BP Pulse Ox 08/19/19 16:20 36.5 C 62 16 137/77 93 08/19/19 15:55 36.8 C 58 L 20 116/72 98 08/19/19 15:20 36.4 C L 64 16 133/71 95 08/19/19 14:50 68 21 117/64 96 08/19/19 14:35 63 20 135/62 95 08/19/19 14:25 66 18 133/63 96 08/19/19 14:15 36.6 C 73 16 136/75 96 08/19/19 14:05 74 28 H 127/64 94 08/19/19 13:55 69 21 132/62 95 08/19/19 13:48 36.4 C L 78 23 142/61 H 95 08/19/19 09:50 61 20 164/64 H 99 08/19/19 09:31 36.8 C 68 20 116/74 98 PG Care Time/CCT Total # of Minutes Spent Total Time Spent with Patient: Total time spent is greater than 50% in coordination of care (as documented) at patient's floor/unit and/or counseling patient: Coding Level of Care Code 35595 Inpt Consult Level 4 Diagnoses Total knee replacement status Z96.659 Hypertension I10 Diabetes mellitus, type 2 E11.9 GERD (gastroesophageal reflux disease) K21.9
[2019-08-19] MEDS: CEFAZOLIN 2000MG 2,000 MG/15 ML SYR IV SCH (18:22)
[2019-08-19] MEDS: INSULIN ASPART 100 UNITS/ML 3 ML PEN SC SCH ×2 (18:23→21:48)
[2019-08-19] MEDS: CeleBREX 200 MG CAP PO SCH (20:27)
[2019-08-19] MEDS: ATORVASTATIN 20 MG TAB PO SCH (20:27)
[2019-08-19] MEDS: ASPIRIN 81 MG ECTAB PO SCH (20:27)
[2019-08-19] MEDS: CALCIUM 600MG + VIT D 400 IU TAB PO SCH (20:27)
[2019-08-19] MEDS: SENNA 8.6 MG TAB PO SCH (20:27)
[2019-08-19] MEDS: DOCUSATE SODIUM 100 MG CAP PO SCH (20:27)
[2019-08-19] MEDS: ATENOLOL 50 MG TABLET PO SCH (20:27)
[2019-08-19] MEDS: OXYCODONE HCL IR 5 MG TAB (IMMEDIATE RELEASE) PO PRN (20:31)
[2019-08-20] MEDS: OXYCODONE HCL IR 5 MG TAB (IMMEDIATE RELEASE) PO PRN ×4 (00:15→20:23)
[2019-08-20] MEDS: SODIUM CHLORIDE 0.9% 1000ML 1,000 ML IV SCH (02:45)
[2019-08-20] MEDS: CEFAZOLIN 2000MG 2,000 MG/15 ML SYR IV SCH (04:46)
[2019-08-20] MEDS: ACETAMINOPHEN 500 MG TAB PO SCH ×3 (05:45→21:53)
[2019-08-20] MEDS: LEVOTHYROXINE SODIUM 50 MCG TABLET PO SCH (05:46)
[2019-08-20 06:43] LABS: Hematocrit (blood only) 29.8 % (37-47); Hemoglobin 9.7 g/dL (12.0-16.0); Mean Corpuscular Hemoglobin 28.4 pg (25-34); Mean Corpuscular Hgb Conc 32.6 g/dL (32-36); Mean Corpuscular Volume 87.4 fL (80-100); Mean Platelet Volume 10.5 fL (7.4-10.4); Platelet Count 238 K/uL (130-400); RDW Coefficient of Variation 14.5 % (11.5-14.5); RDW Standard Deviation 46.7 fL (36.4-46.3); Red Blood Count 3.41 M/uL (4.2-5.4); White Blood Count 9.41 K/uL (4.8-10.8)
[2019-08-20 07:10] LABS: BUN Creatinine Ratio 16.7 (10-20); Creatinine Clr Calc Pharmacy 60.1 ml/min; Est GFR (African American) 67.5; Est GFR (Non-African American) 58.2; Potassium 4.1 mmol/L (3.5-5.1)
--- NOTE | 2019-08-20 08:31 | Orthopedic Progress Note ---
Date of Service August 20, 2019 Assessment & Plan (1) Total knee replacement status: POD #1, Left TKA PT/ OT DVT proph- ASA D/C planning- Home w OPPT, likely tomorrow. As per medicine Admission and Anticipated Discharge Date Admission Date: August 19, 2019 Subjective POD #1, Feeling well. Pain controlled well. Denies SOB/ CP/ N/V. Prefers OPPT on D/C. Physical Exam Physical Exam: Left knee dressings c/d/i, no drainage. Toes/ ankle mobile. No calf tenderness. A&Ox3. Results & Data ([facility]) Vital Signs (Past 12 Hours) Vital Signs Temp Pulse Resp BP Pulse Ox 08/20/19 07:00 36.7 C 59 L 18 121/73 92 08/20/19 03:50 36.7 C 58 L 18 123/75 92 08/19/19 23:57 36.6 C 58 L 18 151/79 H 96
[2019-08-20] MEDS: MULTIVITAMIN TAB PO SCH (08:48)
[2019-08-20] MEDS: AMLODIPINE BESYLATE 5 MG TAB PO SCH (08:49)
[2019-08-20] MEDS: PANTOprazole 40 MG TAB PO SCH (08:50)
[2019-08-20] MEDS: ASPIRIN 81 MG ECTAB PO SCH ×2 (08:50→20:14)
[2019-08-20] MEDS: CALCIUM 600MG + VIT D 400 IU TAB PO SCH ×2 (08:51→20:13)
[2019-08-20] MEDS: CeleBREX 200 MG CAP PO SCH ×2 (08:51→20:13)
[2019-08-20] MEDS: DOCUSATE SODIUM 100 MG CAP PO SCH ×2 (08:51→20:14)
[2019-08-20] MEDS ORDERED: VALSARTAN 80 MG TAB PO SCH (09:00)
[2019-08-20] MEDS ORDERED: NON-FORMULARY MEDICATION (Multivitamin-Min-Iron-Fa-Vit K [Multi For Her] 1 TABCAP) PO SCH (09:00)
[2019-08-20] MEDS ORDERED: hydroCHLOROthiazide 25 MG TAB PO SCH (09:00)
[2019-08-20] MEDS: INSULIN ASPART 100 UNITS/ML 3 ML PEN SC SCH ×4 (09:25→21:52)
[2019-08-20] MEDS: METFORMIN HCL 500 MG TAB PO SCH ×2 (09:33→18:10)
--- NOTE | 2019-08-20 11:27 | Pharmacy Report ---
Glycemic Control Consultation - Date of Service August 20, 2019 - Scope Scope: Glycemic Pharmacist consulted for glycemic control and to write orders per [facility] inpatient glycemic control protocol. - Objective Weight: 89.358 kg Accuchecks BSG (last 24hrs): 08/19/19 08/19/19 08/19/19 13:54 17:09 21:29 Glucose POC Glucose 107 H 98 104 H 08/20/19 08/20/19 06:04 08:40 Glucose 148 H POC Glucose 174 H Laboratory Data (last 24hrs): 08/20/19 06:04 Potassium 4.1 Carbon Dioxide 26 Anion Gap 6.0 Creatinine 1.03 Est Cr Clr Drug Dosing 60.1 HbA1c: Hemoglobin A1c 6.9 % (4.5-5.6) H 08/13/19 11:59 - Recent Pertinent Medications Outpatient Anti-diabetic Regimen: * Metformin 1000 mg PO BIDM * A1c = 6.9% from 08/13/19 The patient is currently receiving: * Basal insulin: None * Correctional Insulin: Novolog Correction per scale ACHS Goal Range: Low 110 mg/dL - High 150 mg/dL Correction Factor: 35 mg/dL/unit * Prandial insulin: Per carb ratio of 1 unit per 16 grams CHO consumed * Oral Agents: Metformin 1000 mg PO BIDM Risk Factors for Insulin Resistance: * Recent Surgery: POD #1 s/p L TKA * Diet: T2DM - Assessment & Plan Assessment & Plan: ASSESSMENT: * 64 yo F who is POD #1 s/p L TKA. Pharmacy is consulted for glycemic management. PMHx significant for HTN, HLD, T2DM, OA. * A1c demonstrates good outpatient control on metformin monotherapy. * Patient received 5 units of bolus insulin last evening. BSGs ranged 98 - 139 mg/dL yesterday. * Fasting BSG this AM was 174 mg/dL. Patient is not on basal insulin at this time. Will continue with Metformin 1000 mg PO BIDM today. * Tightened CF/CR and goal range this morning to correct patient while she is basal deficient. Lunchtime BSG 172 mg/dL. PLAN FOR INPATIENT GLYCEMIC CONTROL: * Oral agent * Metformin 1000 mg PO BIDM - first dose 6/25 AM * Bolus insulin - tightened * NovoLog per scale ACHS or Q6hrs while NPO * Goal Range: Low 110 mg/dL - High 140 mg/dL * Correction Factor: 30 mg/dL/unit * Nutritional / Prandial insulin per carb ratio of 1 unit per 10 grams CHO consumed * Please note that the plan above was derived based on current level of insulin resistance and hospital stress. These recommendations are appropriate for inpatient admission only. Plan of care upon discharge will need to be reassessed to avoid potential outpatient hypo/hyperglycemia. Thank you.
--- NOTE | 2019-08-20 13:34 | Hospitalist Progress Note ---
Date of Service August 20, 2019 Assessment & Plan (1) Total knee replacement status: s/p TKA 08/18 Pain control, dvt proph per primary (2) Hypertension: Continue home amlodipine, and atenolol - resume losartan and hctz tomorrow morning (3) Diabetes mellitus, type 2: pharmacy glycemic consult (4) GERD (gastroesophageal reflux disease): Continue ppi (5) Acute blood loss anemia: Hgb decreased to 9.7 from baseline 12.5. Continue to monitor Thank you for this consult. Medicine will sign off. Please call with any q uestions or concerns Admission and Anticipated Discharge Date Admission Date: August 19, 2019 Supervising Physician Co-Signing Physician Notes I supervised Yi Rivas NP on this patient's care. I examined the patient today independently of her. I discussed the plan of care with her with the plan being as written in her note except for any following changes/exceptions: None. Doing well today. Minimal left knee pain. Home tomorrow per patient from ortho. Subjective Ms. Canales is having some pain at the surgical site but otherwise has no complaints. ROS Constitutional: no chills, aches, sweats or fever Respiratory: no sob,cough, sputum, or wheezing Cardiac: no chest pain, palpitations, edema, orthopnea or lightheadedness GI: no abdominal pain, nausea, vomiting, diarrhea or constipation : no dysuria or hesitancy Extremities: no joint pain or weakness Skin: no rash All other systems reviewed and negative Physical Exam Physical Exam: General: no distress Eyes: normal inspection, PERLL Respiratory: chest non tender, clear to auscultation, normal breath sounds, no respiratory distress, no accessory muscle use Cardiac: regular rate and rhythm, no rub or gallop, no murmur, no edema, no jvd GI/: active bowel sounds, no abd pain or tenderness, soft, non distended Extremities: normal range of motion, normal strength, non tender Neuro/Psych: alert and oriented x 3, normal mood and affect Skin: normal color, dry Results & Data Results & Data ([facility]) Vital Signs (Past 12 Hours) Vital Signs Temp Pulse Resp BP Pulse Ox 08/20/19 12:17 36.8 C 61 16 137/75 92 08/20/19 08:40 74 08/20/19 07:00 36.7 C 59 L 18 121/73 92 08/20/19 03:50 36.7 C 58 L 18 123/75 92 PG Care Time/CCT Total # of Minutes Spent Total Time Spent with Patient: Total time spent is greater than 50% in coordination of care (as documented) at patient's floor/unit and/or counseling patient: Coding Level of Care Code 97390 Subseq Hosp Care Lvl 2 Diagnoses Total knee replacement status Z96.659 Hypertension I10 Diabetes mellitus, type 2 E11.9 GERD (gastroesophageal reflux disease) K21.9 Acute blood loss anemia D62
[2019-08-20] MEDS: SENNA 8.6 MG TAB PO SCH (20:14)
[2019-08-20] MEDS: ATORVASTATIN 20 MG TAB PO SCH (20:15)
[2019-08-20] MEDS: ATENOLOL 50 MG TABLET PO SCH (20:18)
[2019-08-21] MEDS: ACETAMINOPHEN 500 MG TAB PO SCH (05:48)
[2019-08-21] MEDS: LEVOTHYROXINE SODIUM 50 MCG TABLET PO SCH (05:48)
[2019-08-21 05:50] LABS: Hematocrit (blood only) 29.8 % (37-47); Hemoglobin 9.3 g/dL (12.0-16.0); Mean Corpuscular Hemoglobin 27.8 pg (25-34); Mean Corpuscular Hgb Conc 31.2 g/dL (32-36); Mean Corpuscular Volume 89.2 fL (80-100); Mean Platelet Volume 10.7 fL (7.4-10.4); Platelet Count 256 K/uL (130-400); RDW Coefficient of Variation 14.6 % (11.5-14.5); RDW Standard Deviation 47.6 fL (36.4-46.3); Red Blood Count 3.34 M/uL (4.2-5.4); White Blood Count 9.75 K/uL (4.8-10.8)
[2019-08-21 06:23] LABS: BUN Creatinine Ratio 15.9 (10-20); Calcium 8.7 mg/dl (8.5-10.1); Creatinine Clr Calc Pharmacy 60.7 ml/min; Est GFR (African American) 68.3; Est GFR (Non-African American) 58.9; Potassium 4.3 mmol/L (3.5-5.1)
--- NOTE | 2019-08-21 07:42 | Orthopedic Progress Note ---
Date of Service August 21, 2019 Assessment & Plan (1) Total knee replacement status: POD #2, Left TKA PT/ OT DVT proph- ASA D/C planning- Home w OPPT, today As per medicine, appreciate input. Admission and Anticipated Discharge Date Admission Date: August 19, 2019 Subjective POD #2, doing well. Performed well in PT. Denies SOB, CP, N/V. No other complaints. Physical Exam Physical Exam: Left knee silverlon dressing c/d/i. Toes/ ankle mobile. No calf tenderness. A&Ox3. Results & Data ([facility]) Vital Signs (Past 12 Hours) Vital Signs Temp Pulse Resp BP Pulse Ox 08/21/19 07:35 36.7 C 60 16 143/83 H 96 08/20/19 23:15 96 08/20/19 23:12 36.8 C 63 16 147/79 H 86 L 08/20/19 20:15 65 156/76 H
[2019-08-21] MEDS: METFORMIN HCL 500 MG TAB PO SCH (09:00)
[2019-08-21] MEDS: INSULIN ASPART 100 UNITS/ML 3 ML PEN SC SCH (09:21)
[2019-08-21] MEDS: CALCIUM 600MG + VIT D 400 IU TAB PO SCH (09:39)
[2019-08-21] MEDS: CeleBREX 200 MG CAP PO SCH (09:40)
[2019-08-21] MEDS: ASPIRIN 81 MG ECTAB PO SCH (09:40)
[2019-08-21] MEDS: PANTOprazole 40 MG TAB PO SCH (09:41)
[2019-08-21] MEDS: AMLODIPINE BESYLATE 5 MG TAB PO SCH (09:41)
[2019-08-21] MEDS: DOCUSATE SODIUM 100 MG CAP PO SCH (09:42)
[2019-08-21] MEDS: MULTIVITAMIN TAB PO SCH (09:43)
[2019-08-21] MEDS: OXYCODONE HCL IR 5 MG TAB (IMMEDIATE RELEASE) PO PRN (10:04)
--- NOTE | 2019-09-02 13:50 | Discharge Summary (DS) ---
HISTORY OF PRESENT ILLNESS: A 64-year-old female patient of Dr. Alejo'radha complaining of chronic left knee pain, longstanding, progressively getting worse. The patient has failed conservative treatment and has been diagnosed with end-stage osteoarthritis per clinical and radiographic exams. The patient wished to proceed with an elective left total knee arthroplasty. PAST MEDICAL HISTORY: Benign heart murmur, hypertension, hypercholesterolemia, diabetes mellitus, hypothyroidism, acid reflux. POSTOPERATIVE COURSE: The patient was admitted for left total knee arthroplasty on 08/19/2019. She was followed closely with physical therapy, pain control and DVT prophylaxis in the form of aspirin and medical consultation. The patient did very well postoperatively with no issues and was discharged home on postoperative day #2. PHYSICAL EXAMINATION: Left knee Silverlon dressing was clean, dry and intact. There was no redness or drainage. Toes and ankle were mobile and there is no calf tenderness. Negative Homans sign. Neurologically and vascularly the patient was intact in her left lower extremity. DIAGNOSES: Status post left total knee arthroplasty, benign heart murmur, hypertension, hypercholesterolemia, diabetes mellitus, hypothyroidism, and acid reflux. PLAN: The patient was discharged home with outpatient physical therapy. She will continue her preadmission medications with the addition of aspirin for DVT prophylaxis and pain medications. She will follow up as scheduled as an outpatient.
== END 2019-08-21 11:13 | disposition home or self-care (01) | DRG 470 ==
LOC: ASU 08:49 → 3E 13:52